=== PATIENT | female | born 1940 | race Two or more races ===

== ENCOUNTER 2025-08-02 12:40 | Emergency (ER) | payer OTHER ==
[~2025-08-02] VITALS: Ht 152.4 cm; Wt 59.0 kg
[2025-08-02] MEDS: SODIUM CHLORIDE 0.9% 1,000 ML IV ONE (13:40)
[2025-08-02 13:54] LABS: Chloride 104 mmol/L (98-107); Hematocrit 45.0 % (36.0-46.0); Hemoglobin 15.0 g/dL (12.2-16.2); Mean Corpuscular Hemoglobin 33.3 pg (28.0-32.0); Mean Corpuscular Volume 100.1 fL (80.0-100.0); Nucleated Red Blood Cells % 0.1 %; Potassium 3.6 mmol/L (3.5-5.1); Sodium 141 mmol/L (136-145)
[2025-08-02 13:55] LABS: Anion Gap 17 (5-15); Carbon Dioxide 20 mmol/L (20-31)
[2025-08-02 13:56] LABS: Calcium 10.2 mg/dL (8.7-10.4)
[2025-08-02 14:00] LABS: BUN/Creatinine Ratio 16.0 (10.0-20.0); Blood Urea Nitrogen 13 mg/dL (9-23)
[2025-08-02 14:04] LABS: Glucose 122 mg/dL (74-106)
--- NOTE | 2025-08-02 14:13 | ED.PDOC ---
History of Present Illness HPI Comments 85 y/o F is BIBA from [facility] facility for c/c of hypertension. Per EMS personnel report, patient was sent to the ED for [id number] after being evaluated for hypertension, with associated anxiety and shortness of breath onset, earlier, today. Patient remarks on being taken off her blood pressure medications for an extensive period of time for unknown reason, lately. Denies any chest pain, cough, congestion, or further acute symptoms. 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 Family History Family History: Unknown Social History Smoker: Non-Smoker Alcohol: Denies ETOH Use Drugs: Denies Drug Use Lives In: Home All Other Systems: Reviewed and Negative (Comprehensive review of systems are negative unless stated in HPI) Physical Exam General Appearance: Moderate Distress HEENT: Normal ENT Inspection, Pharynx Normal, TMs Normal Neck: Full Range of Motion, Non-Tender, Normal, Normal Inspection Respiratory: Chest Non-Tender, Lungs Clear, No Accessory Muscle Use, No Respiratory Distress, Normal Breath Sounds Cardiovascular: No Edema, No JVD, No Murmur, No Gallop, Normal Peripheral Pulses, Regular Rate/Rhythm Breast Exam: Deferred Gastrointestinal: No Organomegaly, Non Tender, No Pulsatile Mass, Normal Bowel Sounds, Soft Genitalia: Deferred Pelvic: Deferred Rectal: Deferred Extremities: No calf tenderness, Normal capillary refill, Normal inspection, Normal range of motion, Non-tender, No pedal edema Musculoskeletal : Apperance: Normal Neurologic: Alert, 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 Was a procedure done?: No Differential Dx Considerations may include: hypertensive emergency, CA, PE, URI, PNA, among others X-Ray, Labs, Meds, VS Vital Signs Date Time Temp Pulse Resp B/P (MAP) Pulse Ox O2 Delivery O2 Flow Rate FiO2 10/31/25 15:17 97.8 78 19 144/67 (92) 97 97.8 08/02/25 15:17 78 19 97 Room Air 08/02/25 12:55 97.8 95 18 170/82 97 97.8 08/02/25 12:51 89 Lab Test 08/02/25 13:35 08/02/25 13:32 Range/Units Urine Color Colorless Yellow Urine Clarity Clear Clear Urine pH 6.5 5.0-9.0 Urine Specific [place] 1.004 1.001-1.035 Urine Protein Negative Negative Urine Ketones Negative Negative Urine Blood Negative Negative /uL Urine Nitrite Negative Negative Urine Bilirubin Negative Negative Urine Urobilinogen Normal Negative mg/dL Urine Leukocyte Esterase Negative Negative /uL Urine RBC <1 0 - 4 /hpf Urine Microscopic WBC < 1 0-5 /HPF Urine Squamous Epithelial Cells Few <5 /hpf Urine Bacteria None seen None Seen /hpf Urine Glucose Normal Normal mg/dL White Blood Count 5.1 4.4-10.8 10^3/uL Red Blood Count 4.50 4.0-5.20 10^6/uL Hemoglobin 15.0 12.2-16.2 g/dL Hematocrit 45.0 36.0-46.0 % Mean Corpuscular Volume 100.1 H 80.0-100.0 fL Mean Corpuscular Hemoglobin 33.3 H 28.0-32.0 pg Mean Corpuscular Hemoglobin Concent 33.2 32.0-36.0 g/dL Red Cell Distribution Width 17.1 H 11.8-14.3 % Platelet Count 156 140-450 10^3/uL Mean Platelet Volume 7.6 6.9-10.8 fL Neutrophils (%) (Auto) 53.8 37.0-80.0 % Lymphocytes (%) (Auto) 30.1 10.0-50.0 % Monocytes (%) (Auto) 10.9 0.0-12.0 % Eosinophils (%) (Auto) 3.9 0.0-7.0 % Basophils (%) (Auto) 1.3 0.0-2.0 % Neutrophils # (Auto) 2.8 1.6-8.6 10 ^3/uL Lymphocytes # (Auto) 1.5 0.4-5.4 10 ^3/uL Monocytes # (Auto) 0.6 0-1.3 10 ^3/uL Eosinophils # (Auto) 0.2 0-0.8 10 ^3/uL Basophils # (Auto) 0.1 0-0.2 10 ^3/uL Nucleated Red Blood Cells 0.1 % Sodium Level 141 136-145 mmol/L Potassium Level 3.6 3.5-5.1 mmol/L Chloride Level 104 98-107 mmol/L Carbon Dioxide Level 20 20-31 mmol/L Anion Gap 17 H 5-15 Blood Urea Nitrogen 13 9-23 mg/dL Creatinine 0.81 0.550-1.02 mg/dL Glomerular Filtration Rate Calc 72 >90 mL/min BUN/Creatinine Ratio 16.0 10.0-20.0 Serum Glucose 122 H 74-106 mg/dL Calcium Level 10.2 8.7-10.4 mg/dL Troponin I High Sensitivity 6 </=34 ng/L Current Medications Medications (Trade) Dose Ordered Sig/Eliza Route Start Time Stop Time Status Last Admin Sodium Chloride 1,000 ml @ 1,000 mls/hr Q1H ONCE IV 08/02/25 13:15 08/02/25 14:14 DC 08/02/25 13:40 Patient alert. Came in because of high blood pressure. Vitals stable. Answering questions. Moving all extremities. No headache. No dizziness. WBC within normal limits. Hemoglobin within normal limits. No acute process. Blood pressure normalized. Patient feeling better. No leg swelling. No neurological deficits. No recent fall. Explained to the patient. Was told to follow up with her primary care physician. Was told to come back if there is any problem. Time of 1ST Reevaluation: 13:40 Reevaluation 1ST: Improved Patient Education/Counseling: Treatment, Need For Follow Up Family Education/Counseling: No Family Present SEPSIS Sepsis Screen Date sepsis recognized/suspect: Aug 02, 2025 Time Sepsis recognized/suspect: 1244 Recent Procedure: No On Antibiotic Therapy: No Respiratory Rate >20: No Heart Rate >90: Yes Temp<36 C (96.8 F) or >38.3 C: No SBP <90 or MAP <65 mmHG: No New Acute Mental Status Change: No Is the patient on CPAP, BIPAP,: No Physician Orders Electrocardigram (08/02/25 12:52) Vital Signs Date Time Temp Pulse Resp B/P (MAP) Pulse Ox O2 Delivery O2 Flow Rate FiO2 10/31/25 15:17 97.8 78 19 144/67 (92) 97 97.8 08/02/25 15:17 78 19 97 Room Air 08/02/25 12:55 97.8 95 18 170/82 97 97.8 08/02/25 12:51 89 Laboratory Tests Test 08/02/25 13:32 White Blood Count 5.1 10^3/uL (4.4-10.8) Medications Medications Dose Ordered Sig/Eliza Route Start Time Stop Time Status Last Admin Dose Admin Sodium Chloride 1,000 ml @ 1,000 mls/hr Q1H ONCE IV 08/02/25 13:15 08/02/25 14:14 DC 08/02/25 13:40 Departure 1 Departure Time of Disposition: 15:27 Impression: Primary Impression: HTN (hypertension) Qualified Codes: I10 - Essential (primary) hypertension Disposition: 01 HOME / SELF CARE / HOMELESS Condition: Good Discharged With: Self Critical Care Note Critical Care Time?: No Stability Stability form required: No Heart Score Heart Score: Heart Score Response (Comments) Value History Slightly Suspicious 0 EKG Normal 0 Age >65 2 Risk Factors >3 or Hx ASHD 2 Troponin Normal limit 0 Total 4 I personally scribed for VIRGINIA BARTHOLOMEW MD ([email or web address]) on 08/02/25 at 14:13. Electronically submitted by Jasiel Marquez [email or web address]). VIRGINIA BARTHOLOMEW MD Aug 02, 2025 14:13
[2025-08-02] MEDS: ONDANSETRON HCL 4 MG/2 ML VIAL IV ONE (14:14)
[2025-08-02 14:15] LABS: Urine Protein, UAD Negative (Negative)
[2025-08-02 16:12] VITALS: BP 169/78; PULSE 78; RESP 19; TEMP 97.8; O2SAT 97
--- NOTE | 2025-08-05 14:13 | ECG ---
[facility] Test Date: 2025-08-02 Test Time: 12:49:39 Pat Name: ELLIS EVANS Department: [facility] ED Patient ID: [id number] Room: Gender: F Manager Electronic: MARTIN : 1940 Requested By: VIRGINIA BARTHOLOMEW Order Number: [id number] Reading MD: Ino Hadley Measurements Intervals [place] Rate: 89 P: 74 CT: 176 QRS: 9 QRSD: 79 T: 174 QT: 409 QTc: 498 Interpretive Statements Sinus rhythm Low voltage, precordial leads Anteroseptal infarct, old Nonspecific T abnormalities, lateral leads Electronically Signed On 08-06-2025 13:29:38 PST by Ino Hadley Please click the below link to view image of tracing.
== END 2025-08-02 16:16 | disposition home or self-care (01) ==
LOC: ER 12:40 → EDBD 12:40 → ER 16:16
DX: I10 Essential (primary) hypertension (principal); Z79.899 Other long term (current) drug therapy
CPT/HCPCS: 36415; 80048; 81001; 84484; 85025; 93005; 96360; 99284; J7030